=== PATIENT | female | born 2005 | race Two or more races ===

== ENCOUNTER 2023-05-16 07:47 | Day surgery (SDC) | payer MEDICAID ==
[~2023-05-16 07:47] MED LIST: Dexamethasone 4 MG/ML SDV ONE; Glycopyrrolate 0.2 MG/ML 5 ML MDV ONE; Neostigmine Methylsulfate 1 MG/ML 5 ML Syringe ONE; Ondansetron 4 MG/2 ML SDV ONE; Oxymetazoline 0.05% Nasal Spray 30 ML Bottle ONE; Propofol 200 MG/20 ML SDV ONE; Rocuronium 50 MG/5 ML Vial ONE; fentaNYL 250 MCG/5 ML SDV ONE
[2023-05-16] MEDS ORDERED: Midazolam 1 MG/ML 2 ML SDV ONE (09:14)
[2023-05-16] MEDS: Sodium Chloride 0.9% 1,000 ML IV SCH ×2 (09:23→11:09)
[2023-05-16] MEDS ORDERED: Dexamethasone 4 MG/ML SDV ONE (09:24)
[2023-05-16] MEDS ORDERED: Sugammadex Sodium 200 MG/2 ML VIAL ONE (09:50)
[2023-05-16] MEDS ORDERED: Acetaminophen/HYDROcodone 108-2.5 MG/5 ML Soln 15 ML UD Cup PO PRN (11:17)
[2023-05-16 12:24] VITALS: BP 129/81; PULSE 93
== END 2023-05-16 13:21 | disposition home or self-care (01) ==
LOC: JP.SDS 07:47
PROVIDERS: ATTEND Otolaryngology
DX: J35.01 Chronic tonsillitis (principal); J31.2 Chronic pharyngitis; F32.9 Major depressive disorder, single episode, unspecified; G43.009 Migraine without aura, not intractable, without status migrainosus; Z79.899 Other long term (current) drug therapy
CPT/HCPCS: 42821; 81025; A9270; J1100; J2250; J2405; J2704; J3010; J3490; J7030; 88305; J2710